=== PATIENT | male | born 1995 | race Caucasian/White ===

== ENCOUNTER 2019-03-21 10:10 | Emergency (ER) | payer BC ==
[~2019-03-21] VITALS: Ht 182.9 cm; Wt 52.2 kg
[2019-03-21 10:26] VITALS: BP 115/85
--- NOTE | 2019-03-21 10:56 | NUR ---
Patient returned to ED lobby after completion of XRAY.
--- NOTE | 2019-03-21 11:38 | NUR ---
PT AMBULATED TO ER BED 12
--- NOTE | 2019-03-21 12:33 | NUR ---
c/o awoke with left upper back pain with hacking cough x this am admits to hacking moist cough >1 wk----worsening as per pt; has taken over the counter antitussive with minimal to no help full clear speech, no accessory muscle use noted, and no discoloration /injury to back hx--denies rx--none
--- NOTE | 2019-03-21 13:51 | NUR ---
PT RESTING IN BED, SIDE RAIL X1
[2019-03-21] MEDS ORDERED: DEXAMETHASONE 10 MG/ML VIAL PO ONE (14:20)
[2019-03-21 14:37] VITALS: BP 121/88
--- NOTE | 2019-03-21 14:37 | NUR ---
Patient discharged with v/s stable. Written and verbal after care instructions given and explained. Patient alert, oriented and verbalized understanding of instructions. Ambulatory with steady gait. All questions addressed prior to discharge. ID band removed. Patient advised to follow up with PMD. Rx of Promethazine, Abuterol, Prednisone given. Patient educated on indication of medication including possible reaction and side effects. Opportunity to ask questions provided and answered.
== END 2019-03-21 14:37 | disposition home or self-care (01) ==
LOC: MED 10:10
DX: J40 Bronchitis, not specified as acute or chronic (principal); F17.210 Nicotine dependence, cigarettes, uncomplicated
CPT/HCPCS: 71046; 99283; J1100